=== PATIENT | female | born 1975 | race Caucasian/White ===

== ENCOUNTER 2017-06-16 07:01 | Emergency (ER) | payer BC ==
--- OUTSIDE RECORDS SUMMARY | 2017-06-16 07:06 | XMS | Clinical Summary ---
:1975 Author Organization [facility] Address [address] [place] [address] Phone Care Team Providers Name Role Phone , Primary Care Provider Unavailable Allergies Not on File Current Medications Not on file Active Problems Not on file Social History Tobacco Use Types Packs/Day Years Used Date Never Assessed Sex Assigned at Date Recorded Not on file Last Filed Vital Signs Not on file Plan of Treatment Not on file Results Not on filefrom Last 3 Months
[2017-06-16] MEDS ORDERED: Ondansetron HCl/PF 4 MG/2 ML Vial ONE (07:36)
[2017-06-16] MEDS ORDERED: Ketorolac Tromethamine 30 MG/ML VIAL ONE (07:36)
[2017-06-16 07:41] LABS: Bilirubin Negative (Negative); Blood, Urine Large (Negative); Glucose, Urine (Dipstick) Negative (Negative); Ketone, Urine Negative (Negative); Nitrite Negative (Negative); Protein, Urine (Dipstick) Negative (Neg-Trace); Urobilinogen 0.2 mg/dL (0.2-1.0)
[2017-06-16 07:45] LABS: Bacteria/HPF None Seen HPF (None Seen); Squamous Epithelial None Seen HPF (0-3); WBC/HPF None Seen HPF (0-3)
[2017-06-16 08:11] LABS: #Basophils 0.1 thou/uL (0.0-0.2); #Eosinphils 0.1 thou/uL (0.0-0.7); #Lymphocytes 1.7 thou/uL (1.20-3.40); #Monocytes 0.4 thou/uL (0.11-0.59); %Basophils 1.1 % (0.0-1.0); %Eosinophils 1.1 % (0.0-10.0); %Lymphocytes 27.7 % (21.0-51.0); %Monocytes 6.2 % (0.0-10.0); Hematocrit 42.8 % (36.0-47.0); Mean Platelet Volume 8.8 fL (7.4-10.4); Red Blood Cell (RBC) Count 4.57 mill/uL (4.20-5.40); White Blood Cell (WBC) Count 6.2 thou/uL (4.8-10.8)
[2017-06-16 08:22] LABS: ALT (SGPT) 35 U/L (8-55); AST (SGOT) 23 U/L (5-34); Alkaline Phosphatase 46 U/L (40-150); Anion Gap 13 mmol/L (10-20); BUN (Urea Nitrogen) 13 mg/dL (7.0-18.7); Bilirubin, Total 0.4 mg/dL (0.2-1.2); Calc. Creatinine Clearance 0 mL/min (70-130); Calcium 9.3 mg/dL (7.8-10.44); Carbon Dioxide 20 mmol/L (22-29); Chloride 112 mmol/L (98-107); Estimated GFR-MDRD 81; Globulin 3.3 g/dL (2.4-3.5); Protein, Total 7.1 g/dL (6.0-8.3)
--- NOTE | 2017-06-16 08:56 | CT ---
CT ABDOMEN AND PELVIS WITHOUT CONTRAST: Date: 06/16/17 HISTORY: Abdominal pain. Sudden onset of flank pain. COMPARISON: CT abdomen and pelvis dated 01/10/17. FINDINGS: Lung bases are clear. No pericardial effusion. Diffuse hepatic steatosis. Moderate right hydroureteronephrosis due to an obstructing 2.0 x 4.0 mm calculus. This is at the dis nereyda ureter just proximal to the ureterovesical junction. Small appendicolith is seen. There are calculi in the left renal collecting system with a dominant c alculus in the superior pole measuring 5.0 x 6.0 mm. There is mild right perinephric stranding and hydronephrosis. Gallbladder, spleen, pancreas, and adrenal glands are unremarkable. No dilated loops of large or sma ll bowel. Moderate articular disease of sigmoid colon without active inflammation. IMPRESSION: 1. Obstructive calculus distal right ureter just proximal to the ureterovesical junction measuring 2.0 x 4.0 mm with moderate right-sided hydroureteronephrosis. 2. Calculi within the left renal collecting system without obstructive uropathy. 3. Diffuse hepatic steatosis. POS: ADINA
[2017-06-16] MEDS ORDERED: Tamsulosin HCl 0.4 MG CAP ONE (08:59)
== END 2017-06-16 09:37 | disposition home or self-care (01) ==
LOC: SCSER 07:01
DX: N13.2 Hydronephrosis with renal and ureteral calculous obstruction (principal); I10 Essential (primary) hypertension; Z79.899 Other long term (current) drug therapy
CPT/HCPCS: 74176; 80053; 81003; 81015; 84703; 85025; 96361; 96374; 96375; 96376; J1170; J1885; J2405

== ENCOUNTER 2018-04-21 09:56 | Outpatient (CLI) | payer BC ==
[2018-04-21 12:08] LABS: Platelet Count 266 thou/uL (130-400)
[2018-04-21 12:09] LABS: Hemoglobin 14.7 g/dL (12.0-16.0); Mean Corpuscular HGB CONC 33.5 g/dL (32.0-36.0); Mean Corpuscular Hemoglobin 31.8 pg (27.0-31.0); Mean Corpuscular Volume 94.8 fL (78.0-98.0); Platelet Count 266 thou/uL (130-400); RBC Distribution Width 11.4 % (11.5-14.5); Red Blood Cell (RBC) Count 4.63 mill/uL (4.20-5.40); White Blood Cell (WBC) Count 6.4 thou/uL (4.8-10.8)
[2018-04-21 12:16] LABS: BHCG - Serum Negative (NEGATIVE); Pregs Control Background? CLEAR/WHITE (CLR/WHITE); Pregs Control Bar Appear? YES (CONTROL BAR)
[2018-04-21 12:27] LABS: Anion Gap 12 mmol/L (10-20); BUN (Urea Nitrogen) 13 mg/dL (7.0-18.7); Calc. Creatinine Clearance 0 mL/min (70-130); Calcium 9.8 mg/dL (7.8-10.44); Carbon Dioxide 24 mmol/L (22-29); Chloride 105 mmol/L (98-107); Estimated GFR-MDRD 78; Glucose 82 mg/dL (70-105); Potassium 3.8 mmol/L (3.5-5.1); Sodium 137 mmol/L (136-145)
[2018-04-21 13:31] LABS: PTT 31.3 SEC (22.9-36.1); Prothrombin Time 13.4 SEC (12.0-14.7)
--- NOTE | 2018-04-22 07:31 | EKG ---
Test Reason : Blood Pressure : / mmHG Vent. Rate : 078 BPM Atrial Rate : 078 BPM P-R Int : 164 ms QRS Dur : 092 ms QT Int : 384 ms P-R-T Axes : 049 068 065 degrees QTc Int : 437 ms Normal sinus rhythm Normal ECG No previous ECGs available Confirmed by DR. Jessy TALAVERA ([id number]) on 04/22/2018 7:31:32 AM Referred By: BOBBI Confirmed By:DR. Jessy TALAVERA
== END 2018-04-21 09:57 | disposition home or self-care (01) ==
LOC: LABBT 09:56
PROVIDERS: ATTEND Urology
DX: Z01.812 Encounter for preprocedural laboratory examination (principal); N20.2 Calculus of kidney with calculus of ureter
CPT/HCPCS: 80048; 84703; 85027; 85576; 85610; 85730; 93005; 93010

== ENCOUNTER 2018-04-22 07:15 | Day surgery (SDC) | payer BC ==
[2018-04-21 10:15] VITALS: BMI 28.8
[2018-04-22] MEDS ORDERED: CEFAZOLIN/Water 2 GM/20 ML SYRINGE ONE (07:47)
[2018-04-22] MEDS ORDERED: Fentanyl 100 MCG/2 ML VIAL ONE (09:28)
--- NOTE | 2018-04-22 09:46 | RAD ---
ABDOMEN 1 VIEW: Date: 04/22/18 HISTORY: Left renal stone. FINDINGS: There are two small irregular appearing opacities overlying the left kidney, evidence for left renal calculi. No overt ureteral calculus. Small calcified phleboliths in the pelvis. IMPRESSION: Several probable left renal calculi. POS: ADINA
[2018-04-22] MEDS ORDERED: Iothalamate Meglumine 60% 50 ML VIAL FS ONE (11:06)
--- NOTE | 2018-04-22 12:09 | OP ---
DATE OF PROCEDURE: 04/22/2018 PREOPERATIVE DIAGNOSES: Left ureteral stone and left renal stones. POSTOPERATIVE DIAGNOSES: Left ureteral stone and left renal stones. PROCEDURE PERFORMED: Left ureteral ESWL, left renal ESWL x2 and cystoscopy with stent. SURGEON: Dr. Binu Kendall. ANESTHETIC: General. ESTIMATED BLOOD LOSS: Not recorded. FINDINGS: There was a 4-5 mm left mid ureteral stone treated with 2000 shocks at level 5 and appeare d to fragment well. There was a 6-8 mm left upper pole stone treated with 1500 shocks at level 4, ap peared to fragment well. There was a 3-4 mm left lower pole stone, it was actually probably 2 little stones just adjacent to each other. This area was treated with 600 shocks at level 4. It fragmente d well. Because of the number of stones treated we went ahead and placed a stent, a 4.8 x 26 cm with a string attached. OPERATIVE TECHNIQUE: After obtaining written and verbal consent from the patient after receiving IV antibiotics and documenting normal preoperative blood work, she was taken to the operating suite. dio was placed in supine position on the treatment table. PlexiPulses were placed on lower extremities and turned on. She was given a general anesthetic, oral intubation. She was then coupled to the [employer] thotripter unit. The stone in the ureter was placed in treatment focal point and shockwave therapy w as commenced. She went up slowly to level 5 and went up from rate of 60 to a rate of 80. After 2000 shocks, it appeared the stone had fragmented quite well. We then repositioned her going up to the l arger stone in the left kidney. This was started at a low kV at a rate of 60. After a couple 100 sh ocks, a pause was given, then we increased our kV to 4 and treated for a total of 1500 shocks, appear ed to fragment very well. She was then repositioned again in the lower pole stone/stones were treate d with 600 shocks at level 4. At this point, she was placed in the dorsal lithotomy position. She w as sterilely prepped and draped. Cystoscopy was performed with a 22-Latvian sheath. This was well fred bricated, passed under direct vision through the female urethra into the urinary bladder with aid of a 30-degree lens, video camera, and monitor. She had gross hematuria from the procedure and some blo win efflux from the left ureter, but there was no abnormality noted in the urinary bladder. A 5 Fren ch Pollack catheter was flushed with contrast, placed in the left ureteral orifice and about 12 mL of contrast injected in retrograde manner. There is little bit of narrowing where the ureteral stone w as and this very quickly opened up, the open-ended catheter easily went by this point, there was no a sebastian of obstruction. The renal collecting system was filled out and a guidewire was fed through the o pen-ended catheter and the open-ended catheter was removed. We initially placed a 24 cm 4.8-Latvian s tent, but this was slightly short so were removed it and replaced it with a 26 cm, it was in good pos ition in the renal pelvis and distal ureter after the wire was removed. The distal string was left a ttached, but cut slightly shorter exiting the urethral meatus. She was taken out of dorsal lithotomy position, awakened, extubated, and taken by stretcher to the recovery room.
[2018-04-22] MEDS ORDERED: B & O 30 MG SUPP ONE (13:09)
[2018-04-22] MEDS ORDERED: traMADol HCl 50 MG TAB PO PRN (13:20)
[2018-04-22] MEDS ORDERED: TROSPIUM 20 MG TABLET PO SCH (13:30)
[2018-04-22] MEDS ORDERED: B & O PR SCH (13:30)
== END 2018-04-22 14:20 | disposition home or self-care (01) ==
LOC: SDC 07:15
PROVIDERS: ATTEND Urology
PROC: 0TF4XZZ Fragmentation in Left Kidney Pelvis, External Approach (ICD-10-PCS; principal; 2018-04-22)
PROC: 0T778DZ Dilation of Left Ureter with Intraluminal Device, Via Natural or Artificial Opening Endoscopic (ICD-10-PCS; principal; 2018-04-22)
DX: N20.2 Calculus of kidney with calculus of ureter (principal); I10 Essential (primary) hypertension; Z88.8 Allergy status to other drugs, medicaments and biological substances
CPT/HCPCS: 74018; J3010; Q9961

== ENCOUNTER 2018-05-08 08:39 | Outpatient (CLI) | payer BC ==
--- NOTE | 2018-05-08 10:12 | MMO ---
BILATERAL SCREENING MAMMOGRAM: Date: 05/08/18 HISTORY: 42-year-old female. Routine screening mammography. COMPARISON: 04/09/16, 10/21/14, 01/18/14. TECHNIQUE: CC and MLO views of both breasts are submitted for interpretation. This patient's mammogram was reviewed with the assistance of computer-aided detection. FINDINGS: The breasts are composed of scattered fibroglandular tissue. Bilaterally, no suspicious dominant mass , architectural distortion, or suspicious calcifications. There are bilateral benign-appearing calcif ications. IMPRESSION: BIRADS 2: Benign Finding(s) RECOMMENDATION: Annual mammogram. POS: BEATRIZ
== END 2018-05-08 08:40 | disposition home or self-care (01) ==
LOC: SCSMAMMO 08:39
PROVIDERS: ATTEND Obstetrics & Gynecology
DX: Z12.31 Encounter for screening mammogram for malignant neoplasm of breast (principal)
CPT/HCPCS: 77067

== ENCOUNTER 2018-11-30 12:34 | Outpatient (CLI) | payer BC ==
--- NOTE | 2018-11-30 13:59 | MRI ---
MRI CERVICAL SPINE WITHOUT CONTRAST ENHANCEMENT: HISTORY: Neck pain with left cervical radiculopathy. FINDINGS: Vertebral bodies are normal in height. There is degenerative disk narrowing at the C4-C5 and C5-C6 l evels. Cord signal change is normal. C2-C3: Unremarkable. C3-C4: Some disk and posterior osteophytic changes are present. Slightly asymmetric left-sided unco vertebral changes are present with moderate left-sided foraminal narrowing. C4-C5: Asymmetric right-sided uncovertebral changes at this level are associated with moderate right -sided foraminal narrowing. The canal also shows a mild degree of stenosis with some posterior osteo phytic change. C5-C6: Posterior osteophytic bar and disk changes are present at this level. There is moderate bila teral foraminal narrowing, related to uncovertebral and disk changes. C6-C7: There are slightly asymmetric left-sided uncovertebral changes with some moderate left-sided foraminal narrowing. The canal also shows a mild to moderate degree of narrowing. C7-T1: No significant canal or foraminal stenosis. IMPRESSION: Multilevel areas of foraminal stenosis, also with some mild to moderate canal stenosis at C5-C6 level . POS: ADINA
== END 2018-11-30 12:35 | disposition home or self-care (01) ==
LOC: SCSMRI 12:34
PROVIDERS: ATTEND Family Medicine
DX: M54.12 Radiculopathy, cervical region (principal); M48.02 Spinal stenosis, cervical region
CPT/HCPCS: 72141

== ENCOUNTER 2019-02-26 07:00 | Outpatient (CLI) | payer BC ==
--- NOTE | 2019-03-01 16:59 | EKG ---
Test Reason : Blood Pressure : / mmHG Vent. Rate : 078 BPM Atrial Rate : 078 BPM P-R Int : 168 ms QRS Dur : 096 ms QT Int : 402 ms P-R-T Axes : 054 032 050 degrees QTc Int : 458 ms Normal sinus rhythm Normal ECG Confirmed by SANDEEP HADDAD ([id number]) on 03/01/2019 4:58:59 PM Referred By: LARISSA Confirmed By:SANDEEP HADDAD
== END 2019-02-26 07:01 | disposition home or self-care (01) ==
LOC: LABBT 07:00
PROVIDERS: ATTEND Neurological Surgery
DX: Z01.810 Encounter for preprocedural cardiovascular examination (principal); M54.12 Radiculopathy, cervical region
CPT/HCPCS: 93005; 93010

== ENCOUNTER 2019-03-05 05:47 | Day surgery (SDC) | payer BC ==
[2019-02-26 15:16] VITALS: BMI 28.8
--- NOTE | 2019-03-04 13:23 | HP ---
HISTORY OF PRESENT ILLNESS: Ms. oRbledo is a pleasant 43-year-old woman, here for evaluation of long-standing cervical spinal disease that she is known about, but in the past, has chosen to treat conservatively with injections with Dr. Carlson mainly she has pain that radiates to the neck and left shoulder, arm, it fits well the C6 pattern of pain. She has an MRI from [facility] that reveals significant foraminal stenosis bilaterally at C5-C6, fitting her symptoms well. PAST MEDICAL HISTORY: Significant for; 1. Kidney stones. 2. Hypercholesterolemia. 3. Hypertension. PAST SURGICAL HISTORY: Arthroscopic knee surgery. CURRENT MEDICATIONS: 1. Fluoxetine. 2. Toprol. 3. Allopurinol. 4. Aleve. 5. Baclofen. 6. Tramadol. 7. Gabapentin. ALLERGIES: FLAGYL. PHYSICAL EXAMINATION: GENERAL: The patient is alert, oriented x3. NEUROLOGICAL: Gait is normal. No ataxia. Upper extremity motor exam is normal. Restricted cervical range of motion to the right. Positive Spurling's to the right. ASSESSMENT: Cervical radiculopathy. PLAN: Dr. Cervantes met with the patient, reviewed imaging, advocated for C5-C6 ACDF. He explained to the patient about the risks, benefits, and alternatives to the procedure. The patient expressed understanding and elected to move forward with surgery as discussed. I do believe the patient is mentally competent and capable of making medical decisions for herself. We will move forward with surgery as planned. Job ID: [id number]
[2019-03-05] MEDS ORDERED: Lidocaine 2% Jelly 5 ML TUBE ONE (06:14)
[2019-03-05] MEDS ORDERED: Midazolam HCl 2 mg/2 ml Vial ONE (06:14)
[2019-03-05] MEDS ORDERED: Fentanyl 100 MCG/2 ML VIAL ONE ×3 (06:14→09:15)
[2019-03-05] MEDS ORDERED: Thrombin 5000 UNITS/5 ML VIAL ONE (06:20)
--- NOTE | 2019-03-05 09:10 | PRG ---
DATE OF SERVICE: 03/05/2019 Ms. Eric Robledo is a 43-year-old female, evaluated in the outpatient setting for a left C6 radiculopathy. She has an MRI scan, which shows multilevel cervical degenerative disk disease with most significant at C5-C6, where she has severe disk osteophyte complexes encroaching upon the foramen of the C6 nerve root on the left, which would account for and correlate very well with her pain. She has been seeing Dr. Carlson. He has been treating this with injections and she has also been taking medications. I had talked to her on the phone prior to today and that with her in person today to again review with her, her imaging, her diagnosis, and the planned surgical procedure, which is a one level ACDF at C5-C6. Again confirmed with her, her symptoms, which remain a C6 radiculopathy on the left side. I reviewed with her in detail the risks, benefits, and alternatives of the surgery as well as the anticipated perioperative recovery. I answered all of her questions as well as the questions of those of her family and she provided informed consent. Job ID: [id number]
[2019-03-05] MEDS ORDERED: Acetaminophen/Codeine 30-300mg Tablet ONE ×2 (11:44→12:57)
--- NOTE | 2019-03-05 13:03 | OP ---
DATE OF PROCEDURE: 03/05/2019 PRINCIPAL LIBRARIAN: Christopher Menezes PA-C. INDICATIONS: Pain. DIAGNOSIS: Cervical radiculopathy. PROCEDURE PERFORMED: Anterior cervical diskectomy and fusion, C5-C6. ANESTHESIA: General. DESCRIPTION OF PROCEDURE: The patient was brought into the operating room and placed under general anesthesia. She was placed on table in a supine position. A transverse incision was planned over the lateral aspect of the neck on the right. After prepping and draping and after an appropriate preoperative pause, the incision was created. The underlying platysma muscle was identified and incised. The blunt tissue plane anterior to the sternocleidomastoid muscle was used to gain access to the prevertebral space. Self-retaining retractors were placed in the wound for optimal exposure. After confirming the appropriate level with C-arm fluoroscopy, an annulotomy was performed in the C5-C6 disk space. All disk material as well as anterior and posterior osteophytes were removed with the aid of distraction pins. After decompressing the C5-C6 segment, a 7-mm lordotic PEEK cage packed with allograft and autograft material was placed within the interbody space. An anterior cervical plate was then fashioned to the front of spine and secured with a total of 4 fixed screws. Midline and lateral structures were then inspected and found to be free from significant trauma. The wound was irrigated. Hemostasis was maintained throughout. The wound was then closed in anatomic layers and a pressure dressing was applied. There were no known procedural complications. Job ID: [id number]
== END 2019-03-05 13:35 | disposition home or self-care (01) ==
LOC: SDC 05:47
PROVIDERS: ATTEND Neurological Surgery
PROC: 0RG20A0 Fusion of 2 or more Cervical Vertebral Joints with Interbody Fusion Device, Anterior Approach, Anterior Column, Open Approach (ICD-10-PCS; principal; 2019-03-05)
PROC: 0RB30ZZ Excision of Cervical Vertebral Disc, Open Approach (ICD-10-PCS; principal; 2019-03-05)
PROC: 0RG1070 Fusion of Cervical Vertebral Joint with Autologous Tissue Substitute, Anterior Approach, Anterior Column, Open Approach (ICD-10-PCS; principal; 2019-03-05)
DX: M50.122 Cervical disc disorder at C5-C6 level with radiculopathy (principal); E78.00 Pure hypercholesterolemia, unspecified; I10 Essential (primary) hypertension; Z88.1 Allergy status to other antibiotic agents; Z79.891 Long term (current) use of opiate analgesic; Z79.899 Other long term (current) drug therapy
CPT/HCPCS: 76000; C1713; C1776; J0690; J2250; J3010

== ENCOUNTER 2022-08-29 12:00 | Outpatient (CLI) | payer BC | END 2022-08-29 12:01 | disposition home or self-care (01) | LOC: SCSMRI 12:00 | PROVIDERS: ATTEND Family Medicine | DX: M47.22 Other spondylosis with radiculopathy, cervical region (principal); Z98.890 Other specified postprocedural states | CPT/HCPCS: 72156; 82565 ==

== ENCOUNTER 2024-05-28 11:54 | Outpatient (CLI) | payer BC ==
[2024-05-28 13:04] LABS: #Basophils Less than 0.03 10x3/uL (0.0-0.2); #Eosinophils Less than 0.03 10x3/uL (0.0-0.7); %Basophils 0.4 % (0.0-1.0); %Eosinophils 0.4 % (0.0-10.0); %Monocytes 5.4 % (0.0-10.0); %Neutrophils 58.8 % (42.0-75.0); Hematocrit 40.5 % (36.0-47.0); Hemoglobin 13.6 g/dL (12.0-16.0); Mean Corpuscular HGB CONC 33.6 g/dL (32.0-36.0); Mean Corpuscular Hemoglobin 33.3 pg (27.0-31.0); Mean Platelet Volume 9.9 fL (7.4-10.4); Platelet Count 272 10x3/uL (130-400); RBC Distribution Width 12.4 % (11.5-14.5); Red Blood Cell (RBC) Count 4.09 mill/uL (4.20-5.40)
[2024-05-28 13:22] LABS: Anion Gap 10 mmol/L (10-20); BUN (Urea Nitrogen) 9 mg/dL (9.8-20.1); Calc. Creatinine Clearance 0 mL/min (70-130); Calcium 8.9 mg/dL (7.8-10.44); Carbon Dioxide 25 mmol/L (22-29); Chloride 105 mmol/L (98-107); Estimated GFR 103; Glucose 94 mg/dL (70-105); Potassium 4.3 mmol/L (3.5-5.1); Sodium 136 mmol/L (136-145)
== END 2024-05-28 11:55 | disposition home or self-care (01) ==
LOC: LABBT 11:54
PROVIDERS: ATTEND Urology
DX: Z01.818 Encounter for other preprocedural examination (principal); N20.1 Calculus of ureter
CPT/HCPCS: 80048; 85025; 87086; 93005; 93010

== ENCOUNTER 2024-05-31 07:53 | Day surgery (SDC) | payer BC ==
[2024-05-28 12:31] VITALS: BMI 22.0
[2024-05-31] MEDS ORDERED: Iopamidol 30 ML ONE (10:17)
[2024-05-31] MEDS ORDERED: Midazolam HCl 2 mg/2 ml Vial ONE (10:25)
[2024-05-31] MEDS ORDERED: fentaNYL PF 100 MCG/2 ML SYRINGE ONE (10:25)
[2024-05-31] MEDS ORDERED: PROPOFOL 20 ML ONE (10:25)
[2024-05-31] MEDS ORDERED: CEFAZOLIN 2 GM VIAL ONE (10:31)
[2024-05-31] MEDS ORDERED: Lidocaine 1% PF 5 ML VIAL ONE (10:44)
[2024-05-31] MEDS ORDERED: Dexamethasone 20 MG/5 ML VIAL ONE (10:48)
[2024-05-31] MEDS ORDERED: Ondansetron PF 4 MG/2 ML Vial ONE (10:48)
[2024-05-31] MEDS ORDERED: Ketamine In 0.9 % NaCl 50 MG/5 ML SYRINGE ONE (10:50)
[2024-05-31 10:55] LABS: PTT 30.9 sec (22.9-36.1); Prothrombin Time 13.5 sec (12.0-14.7)
[2024-05-31] MEDS ORDERED: fentaNYL 50 mcg/mL 1 mL Vial ONE (13:00)
== END 2024-05-31 14:14 | disposition home or self-care (01) ==
LOC: SDC 07:53
PROVIDERS: ATTEND Urology
PROC: 0T778DZ Dilation of Left Ureter with Intraluminal Device, Via Natural or Artificial Opening Endoscopic (ICD-10-PCS; principal; 2024-05-31)
DX: N20.1 Calculus of ureter (principal)
CPT/HCPCS: 74420; 85610; 85730; C1874; J1100; J2250; J2405; J2704; J3010; J3490; Q9967

== ENCOUNTER 2024-06-08 16:13 | Outpatient (CLI) | payer BC | END 2024-06-08 16:14 | disposition home or self-care (01) | LOC: LABBT 16:13 | PROVIDERS: ATTEND Urology | DX: Z01.818 Encounter for other preprocedural examination (principal); N20.1 Calculus of ureter | CPT/HCPCS: 87086; 93005; 93010 ==

== ENCOUNTER 2024-06-15 06:18 | Day surgery (SDC) | payer BC ==
[2024-06-08 16:14] VITALS: BMI 22.8
[2024-06-15] MEDS ORDERED: fentaNYL PF 100 MCG/2 ML SYRINGE ONE (07:12)
[2024-06-15] MEDS ORDERED: Ondansetron PF 4 MG/2 ML Vial ONE (07:12)
[2024-06-15] MEDS ORDERED: Midazolam HCl 2 mg/2 ml Vial ONE (07:12)
[2024-06-15] MEDS ORDERED: PROPOFOL 20 ML ONE (07:12)
[2024-06-15] MEDS ORDERED: Dexamethasone 4 mg/ml Vial ONE (07:12)
[2024-06-15] MEDS ORDERED: Lidocaine 1% PF 5 ML VIAL ONE (07:12)
[2024-06-15] MEDS ORDERED: Rocuronium Bromide 10 MG/ML (10ML VIAL) ONE (07:12)
[2024-06-15] MEDS ORDERED: PHENYLEPHRINE-NS 100 MCG/ML 10 ML SYRINGE ONE (07:13)
[2024-06-15] MEDS ORDERED: Glycopyrrolate 0.2 MG/ML 5 ML SYRINGE ONE (07:13)
[2024-06-15] MEDS ORDERED: LevoFLOXacin D5W 500 mg (100 mL) BAG ONE (07:26)
[2024-06-15] MEDS ORDERED: fentaNYL 50 mcg/mL 1 mL Vial ONE ×2 (09:32→09:46)
[2024-06-15] MEDS ORDERED: Phenazopyridine HCl 100 MG TAB ONE (10:38)
[2024-06-15] MEDS ORDERED: Hyoscyamine SL 0.125 MG TAB ONE (10:38)
== END 2024-06-15 12:35 | disposition home or self-care (01) ==
LOC: SDC 06:18
PROVIDERS: ATTEND Urology
PROC: 0TF78ZZ Fragmentation in Left Ureter, Via Natural or Artificial Opening Endoscopic (ICD-10-PCS; principal; 2024-06-15)
DX: N20.1 Calculus of ureter (principal); N20.2 Calculus of kidney with calculus of ureter; I10 Essential (primary) hypertension; E78.00 Pure hypercholesterolemia, unspecified; F41.9 Anxiety disorder, unspecified; K57.90 Diverticulosis of intestine, part unspecified, without perforation or abscess without bleeding; K58.9 Irritable bowel syndrome, unspecified; Z87.442 Personal history of urinary calculi; Z88.1 Allergy status to other antibiotic agents
CPT/HCPCS: 74420; 82365; 88300; C1747; C2617; J1100; J1956; J2250; J2405; J2704; J3010